=== PATIENT | female | born 1945 | race Caucasian/White ===

== ENCOUNTER 2016-10-23 22:39 | Emergency (ER) | payer MEDICAID ==
[2016-10-23 23:39] LABS: BASOPHIL % 0.4 % (0-2); PLATELET COUNT 255 x10^3mcL (130-400); RED CELL DISTRIBUTION WIDTH 13.7 % (11.5-14.5)
[2016-10-23 23:46] LABS: CALCIUM 9.2 mg/dL (8.5-10.1); CARBON DIOXIDE 29.4 mmol/L (21-32); CHLORIDE SERUM 97 mmol/L (98-107); CREATININE SERUM 0.8 mg/dL (0.6-1.0); GFR1 > 60 mL/min; GLUCOSE SERUM 309 mg/dL (74-106); POTASSIUM SERUM 3.9 mmol/L (3.5-5.1); SODIUM SERUM 136 mmol/L (136-145)
[2016-10-23 23:50] LABS: ALBUMIN 3.5 g/dL (3.4-5.0); ALKALINE PHOSPHATASE 73 U/L (46-116); ALT/SGPT 31 U/L (14-59); AST/SGOT 31 U/L (15-37); BILIRUBIN TOTAL 0.2 mg/dL (0.20-1.00); TOTAL PROTEIN, SERUM 7.7 g/dL (6.4-8.2)
[2016-10-24 03:21] VITALS: BP 135/85
== END 2016-10-24 03:21 | disposition home or self-care (01) ==
LOC: ED 22:39
PROVIDERS: Emergency Medicine
DX: I10 Essential (primary) hypertension (principal); H81.10 Benign paroxysmal vertigo, unspecified ear; R11.10 Vomiting, unspecified; E11.9 Type 2 diabetes mellitus without complications; Z79.84 Long term (current) use of oral hypoglycemic drugs
CPT/HCPCS: 83880; J2405; J2765; J7030; J8597

== ENCOUNTER 2017-04-23 17:10 | Inpatient (IN) | payer MEDICAID ==
[~2017-04-23] VITALS: Ht 154.9 cm; Wt 74.9 kg
[2017-04-23 17:14] VITALS: Ht 154.9 cm; Wt 74.9 kg
[2017-04-23 18:27] LABS: CALCIUM 7.9 mg/dL (8.5-10.1); CARBON DIOXIDE 25.1 mmol/L (21-32); CHLORIDE SERUM 101 mmol/L (98-107); CREATININE SERUM 0.9 mg/dL (0.6-1.0); GLUCOSE SERUM 156 mg/dL (74-106); POTASSIUM SERUM 3.8 mmol/L (3.5-5.1); SODIUM SERUM 137 mmol/L (136-145)
[2017-04-23 18:32] LABS: ALBUMIN 3.1 g/dL (3.4-5.0); ALKALINE PHOSPHATASE 58 U/L (46-116); ALT/SGPT 31 U/L (14-59); AST/SGOT 42 U/L (15-37); BILIRUBIN TOTAL 0.2 mg/dL (0.20-1.00); TOTAL PROTEIN, SERUM 7.1 g/dL (6.4-8.2)
[2017-04-23 18:38] LABS: BASOPHIL % 0.3 % (0-2); PLATELET COUNT 226 x10^3mcL (130-400)
[2017-04-23] MEDS ORDERED: ENALAPRIL MALEA10 MG PO (19:23)
[2017-04-23] MEDS ORDERED: MOTION SICKNESS25 M1 PO (19:25)
[2017-04-23] MEDS ORDERED: VITAMIN-D1000 IU PO (19:25)
[2017-04-23] MEDS ORDERED: GOOD SENSE ASPI81 M3 PO (19:25)
[2017-04-23] MEDS ORDERED: GLUCOTROL10 MG PO (19:25)
[2017-04-23] MEDS ORDERED: METFORMIN HCL1000 MG PO (19:26)
[2017-04-23] MEDS ORDERED: INSULIN PEN NE1 EAC1 (19:26)
[2017-04-23] MEDS ORDERED: ZOLOFT50 MG PO (19:26)
[2017-04-23] MEDS ORDERED: GOOD SENSE OMEP20 MG PO (19:27)
[2017-04-23] MEDS ORDERED: HYDROCHLOROTH12.5 M2 PO (19:27)
[2017-04-23 20:08] VITALS: BP 149/64
[2017-04-23 21:05] LABS: MAGNESIUM 1.6 mg/dL (1.8-2.4); PHOSPHOROUS 3.1 mg/dL (2.5-4.9)
[2017-04-23 21:21] VITALS: BP 148/64
[2017-04-23 21:28] LABS: CHOLESTEROL/HDL RATIO 1.8
[2017-04-24 05:28] VITALS: BP 156/84
[2017-04-24 07:02] LABS: BASOPHIL % 0.4 % (0-2); PLATELET COUNT 223 x10^3mcL (130-400); RED CELL DISTRIBUTION WIDTH 14.3 % (11.5-14.5)
[2017-04-24 07:26] LABS: T3 TOTAL 0.77 ng/mL
[2017-04-24 07:36] LABS: CALCIUM 8.1 mg/dL (8.5-10.1); CARBON DIOXIDE 25.6 mmol/L (21-32); CHLORIDE SERUM 101 mmol/L (98-107); CREATININE SERUM 0.6 mg/dL (0.6-1.0); GLUCOSE SERUM 140 mg/dL (74-106); POTASSIUM SERUM 3.7 mmol/L (3.5-5.1); SODIUM SERUM 138 mmol/L (136-145)
[2017-04-24 07:47] LABS: FREE T4 0.93 ng/dL (0.76-1.46); FREE THYROXINE INDEX 2.6 ug/dL (1.4-4.5); T4(THYROXINE) 7.1 ug/dL (4.7-13.3)
[2017-04-24 09:47] VITALS: BP 166/83
[2017-04-24 13:57] VITALS: BP 144/84
== END 2017-04-24 17:02 | disposition home or self-care (01) | DRG 137 ==
LOC: ED 17:10 → DU 19:07
PROVIDERS: Emergency Medicine; Family Medicine
DX: J69.0 Pneumonitis due to inhalation of food and vomit (principal); E44.0 Moderate protein-calorie malnutrition; E11.65 Type 2 diabetes mellitus with hyperglycemia; E83.42 Hypomagnesemia; E86.0 Dehydration; D64.9 Anemia, unspecified; J06.9 Acute upper respiratory infection, unspecified; I10 Essential (primary) hypertension; F41.8 Other specified anxiety disorders; Z86.73 Personal history of transient ischemic attack (TIA), and cerebral infarction without residual deficits
CPT/HCPCS: 83880; 84439; 87804; J1885; J1956; J2405; J3475; J3490; J7030; Q0092